=== PATIENT | female | born 1965 | race Caucasian/White ===

== ENCOUNTER → 2023-04-05 | Outpatient (CLI) | payer BC ==
[~2023-04-05] MED LIST: LIDOCAINE 1% MDV 20ML VIAL As Ordered ONE
[2023-04-05 08:15] VITALS: TEMP 98.4
[2023-04-05 08:34] LABS: HEMATOCRIT 39.8 % (36.0-47.0); HEMOGLOBIN 13.3 g/dl (12.0-15.5); MEAN CORPUSCULAR HEMOGLOBIN 29.8 pg (27.0-33.0); MEAN CORPUSCULAR HGB CONC 33.4 g/dl (32.0-36.5); PLATELET COUNT, AUTOMATED 260 10^3/uL (150-450); RED BLOOD COUNT 4.47 10^6/uL (4.00-5.40); WHITE BLOOD COUNT 5.7 10^3/uL (4.0-10.0)
[2023-04-05 08:48] VITALS: BP 144/80; O2SAT 99
[2023-04-05 09:29] LABS: PROTHROMBIN TIME 13.4 SECONDS (12.5-14.5)
== END ==
LOC: M IRPRO 07:55
PROVIDERS: ATTEND Otolaryngology
DX: D44.0 Neoplasm of uncertain behavior of thyroid gland (principal)

== ENCOUNTER → 2023-05-12 | Outpatient (CLI) | payer BC ==
[~2023-05-12] MED LIST changes: +AIMO70IN SC; +CARV3.12 PO; +CYCL10TA20 PO; +LOSA100T46 PO; +OMEP40CA4 PO; +PANT40TA29 PO; +UBRO100T PO; +VERA180T42 PO
[2023-05-12 09:03] VITALS: TEMP 97.9
[2023-05-12 10:52] VITALS: BP 182/94; O2SAT 98
== END ==
LOC: M IRPRO 08:45
PROVIDERS: ATTEND Otolaryngology
DX: D34 Benign neoplasm of thyroid gland (principal)